=== PATIENT | female | born 1955 | race Caucasian/White ===

== ENCOUNTER 2017-01-28 17:38 | Emergency (ER) | payer SELFPAY ==
[~2017-01-28] VITALS: Ht 144.8 cm; Wt 79.0 kg
[2017-01-28 17:44] VITALS: BP 165/78; TEMP 97.3
[2017-01-28 19:11] LABS: BASO % 0.2 % (0.0-2.0); EOS % 0.4 % (0-4.0); GRAN # 9.7 (1.4-6.5); GRAN % 88.9 % (42.2-75.2); HEMATOCRIT 42.9 % (37.0-47.0); LYMPH # 0.6 (1.2-3.4); LYMPH % 5.3 % (20.0-51.0); MEAN CELL VOLUME 85 fl (80.0-100.0); MEAN CORPUSCULAR HEMOGLOBIN 28 pg (27.0-31.0); MEAN CORPUSCULAR HGB CONC 33 g/dl (33.0-37.0); MEAN PLATELET VOLUME 10.5 fl (7.4-10.4); MONO # 0.5 (0.1-0.6); MONO % 4.7 % (1.7-9.3); PLATELET COUNT 322 K/mm3 (130-400); RED BLOOD COUNT 5.05 M/mm3 (4.10-5.30); REDCELL DISTRIBUTION WIDTH-CV 13.9 % (11.5-14.5); WHITE BLOOD COUNT 10.9 K/mm3 (4.8-10.8)
[2017-01-28 19:19] LABS: CALCIUM 10.4 mg/dL (8.4-10.2); CREATININE, serum 0.63 mg/dL (0.52-1.25); POTASSIUM 4.8 mmol/L (3.4-5.0)
[2017-01-28] MEDS ORDERED: ZOFRAN ODT4 MG PO (20:20)
[2017-01-28 20:36] VITALS: PULSE 100
== END 2017-01-28 20:38 | disposition home or self-care (01) ==
LOC: COL.ER 17:38
PROVIDERS: Emergency Medicine
DX: T62.0X1A Toxic effect of ingested mushrooms, accidental (unintentional), initial encounter (principal); R11.2 Nausea with vomiting, unspecified; R19.7 Diarrhea, unspecified; E11.9 Type 2 diabetes mellitus without complications; Z79.84 Long term (current) use of oral hypoglycemic drugs
CPT/HCPCS: J2405; J7030